=== PATIENT | female | born 1930 | race Caucasian/White ===

== ENCOUNTER 2018-04-02 19:20 | Emergency (ER) | payer MEDICARE, OTHER ==
[~2018-04-02] VITALS: Ht 167.6 cm; Wt 59.3 kg
[~2018-04-02 19:20] MED LIST: ALBU8.5H8 INH; ASPI-515 PO; BECL8.7A7 INH; CA C1TAB28 PO; CALCIUM PO; DENO60DI INJ; FLUT10SP INH; LEVO100T74 PO; LEVO88TA43 PO; LISI-170 PO; MONT10TA9 PO; MULT-224 PO; OMEP-110 PO; PRAV40TA2 PO; VITA150T PO
[2018-04-02 19:28] VITALS: BP 179/80
[2018-04-02] MEDS ORDERED: OXYcodone/APAP 5/325MG TABLET ONE (19:49)
[2018-04-02] MEDS ORDERED: OXYcodone/APAP 5/325MG TABLET PO ONE (20:00)
== END 2018-04-02 20:36 | disposition home or self-care (01) ==
LOC: ED 20:30
DX: S46.912A Strain of unspecified muscle, fascia and tendon at shoulder and upper arm level, left arm, initial encounter (principal); J44.1 Chronic obstructive pulmonary disease with (acute) exacerbation; E78.00 Pure hypercholesterolemia, unspecified; E07.9 Disorder of thyroid, unspecified; W01.0XXA Fall on same level from slipping, tripping and stumbling without subsequent striking against object, initial encounter; Y93.89 Activity, other specified; Y99.8 Other external cause status; Y92.009 Unspecified place in unspecified non-institutional (private) residence as the place of occurrence of the external cause
CPT/HCPCS: 71046; 99284

== ENCOUNTER 2019-04-06 10:04 | Outpatient (CLI) | payer MEDICARE, OTHER ==
[~2019-04-06 10:04] MED LIST changes: -MULT-224 PO; +MULT-642 PO
[2019-04-06] MEDS ORDERED: CHOL500051 PO (11:24)
[2019-04-06] MEDS ORDERED: CALC-545 PO (11:24)
[2019-04-06] MEDS ORDERED: IPRA30SP NS (11:24)
[2019-04-06] MEDS ORDERED: CENTRUM SILVER PEG (11:24)
[2019-04-06] MEDS ORDERED: [UNRECOGNIZED DRUG - OTHER] PO (11:24)
[2019-04-06] MEDS ORDERED: BIFI4CAP PO (11:24)
[2019-04-06] MEDS ORDERED: TRAM50TA2 PO (11:24)
== END 2019-04-06 23:59 | disposition home or self-care (01) ==
LOC: STAR 10:04
PROVIDERS: ATTEND Surgery
DX: Z01.818 Encounter for other preprocedural examination (principal); C50.112 Malignant neoplasm of central portion of left female breast
CPT/HCPCS: 93005

== ENCOUNTER 2019-04-07 08:35 | Outpatient (CLI) | payer MEDICARE, OTHER ==
[~2019-04-07 08:35] MED LIST changes: +BIFI4CAP PO; +CALC-545 PO; +CENTRUM SILVER PEG; +CHOL500051 PO; +IPRA30SP NS; +REGADENOSON 0.4 MG/5 ML SYRINGE ONE; +TRAM50TA2 PO; +[UNRECOGNIZED DRUG - OTHER] PO
== END 2019-04-07 23:59 | disposition home or self-care (01) ==
LOC: CFH 08:35
PROVIDERS: ATTEND Internal Medicine Cardiovascular Disease
DX: Z01.812 Encounter for preprocedural laboratory examination (principal); C50.112 Malignant neoplasm of central portion of left female breast
CPT/HCPCS: 78452; 93017; A9502; J2785

== ENCOUNTER 2019-07-23 07:39 | Emergency (ER) | payer MEDICARE, OTHER ==
[~2019-07-23] VITALS: Ht 167.6 cm; Wt 59.0 kg
[~2019-07-23 07:39] MED LIST changes: +MONT10TA11 PO; -MONT10TA9 PO; -REGADENOSON 0.4 MG/5 ML SYRINGE ONE
--- NOTE | 2019-07-23 08:09 | NUR ---
EZEQUIEL. REPORT RECEIVED FROM EMS. PT C/O SOB. PT HAD RECENT BACK SURGERY AND TAKES OXYCODONE FOR PAIN, THEN PT C/O SLEEP APNEA AND SOB. PT'S AOX4. RESPS EVEN AND UNLABORED. PT USES C-PAP FOR SLEEP APNEA. BP/SPO2 MONITORS IN PLACE. CALL LIGHT WITHIN REACH.
--- NOTE | 2019-07-23 08:34 | NUR ---
pt amb to br with steady gait.
[2019-07-23] MEDS ORDERED: LORazepam 1MG TABLET ONE (09:16)
--- NOTE | 2019-07-23 09:25 | NUR ---
PT MEDICATED PER EMAR. PT TOLERATED WELL.
[2019-07-23] MEDS ORDERED: LORazepam 1MG TABLET PO ONE (09:30)
[2019-07-23] MEDS ORDERED: SODIUM CHLORIDE FLUSH 10ML SYR IVF ONE (09:30)
--- NOTE | 2019-07-23 09:39 | NUR ---
EKG DONE AT BEDSIDE BY EMT.
[2019-07-23 10:09] VITALS: BP 146/71
[2019-07-23 10:11] LABS: BASOPHILS # (AUTO) 0.02 x10^3/uL (0-0.1); BASOPHILS % (AUTO) 1 % (0-1); EOSINOPHILS # (AUTO) 0.04 x10^3/uL (0-0.4); EOSINOPHILS % (AUTO) 1 % (1-7); LYMPHOCYTES # (AUTO) 0.71 x10^3/uL (1-3.4); LYMPHOCYTES % (AUTO) 17 % (22-44); MD NO; MEAN CORPUSCULAR HEMOGLOBIN 30.7 pg (27.0-34.8); MEAN CORPUSCULAR HGB CONC 33.4 g/dL (32.4-35.8); MEAN CORPUSCULAR VOLUME 91.8 fL (80-100); MEAN PLATELET VOLUME 8.4 fL (7.4-10.4); MONOCYTES # (AUTO) 0.19 x10^3/uL (0.2-0.8); MONOCYTES % (AUTO) 5 % (2-9); NEUTROPHILS # (AUTO) 3.29 x10^3/uL (1.8-6.8); NEUTROPHILS % (AUTO) 77 % (42-75); PLATELET COUNT 417 x10^3/uL (130-400); RED BLOOD COUNT 3.28 x10^6/uL (3.82-5.3); RED CELL DISTRIBUTION WIDTH 17.2 % (9.6-15.2)
[2019-07-23 10:22] LABS: ALBUMIN 3.1 g/dL (3.4-5.0); ANION GAP 9 mmol/L (5-15); CALCIUM 8.9 mg/dL (8.5-10.1); CHLORIDE 107 mmol/L (98-107)
--- NOTE | 2019-07-23 10:25 | NUR ---
PT SLEEPING IN [facility]. RESPS EVEN AND UNLABORED. BP/SPO2 MONITORS IN PLACE. CALL LIGHT WITHIN REACH.
[2019-07-23 10:27] LABS: ALANINE AMINOTRANSFERASE 13 U/L (12-78); ALKALINE PHOSPHATASE 82 U/L (45-117); BILIRUBIN,TOTAL 0.5 mg/dL (0.2-1.0); CREATININE 0.73 mg/dL (0.55-1.02); TOTAL PROTEIN 6.6 g/dL (6.4-8.2); TROPONIN I < 0.015 ng/mL (0.000-0.045)
--- NOTE | 2019-07-23 10:51 | NUR ---
REPORT RECEIVED FROM BIJU ROBISON.
== END 2019-07-23 11:43 | disposition home or self-care (01) ==
LOC: ED 08:04
DX: R06.00 Dyspnea, unspecified (principal); F41.1 Generalized anxiety disorder; R05 Cough; I10 Essential (primary) hypertension; J45.909 Unspecified asthma, uncomplicated; Z86.39 Personal history of other endocrine, nutritional and metabolic disease; E78.00 Pure hypercholesterolemia, unspecified; Z87.891 Personal history of nicotine dependence; Z90.710 Acquired absence of both cervix and uterus; Z90.10 Acquired absence of unspecified breast and nipple; R94.31 Abnormal electrocardiogram [ECG] [EKG]
CPT/HCPCS: 36415; 71045; 80053; 84484; 85025; 85730; 87040; 93005; 99284

== ENCOUNTER 2020-07-26 11:38 | Emergency (ER) | payer MEDICARE, OTHER ==
[~2020-07-26] VITALS: Ht 167.6 cm; Wt 60.0 kg
[~2020-07-26 11:38] MED LIST changes: -ASPI-515 PO; +ASPI-963 PO; -CALC-545 PO; +CALC-780 PO; -MONT10TA11 PO; +MONT10TA17 PO
--- NOTE | 2020-07-26 11:48 | NUR ---
QUALITY CONTROL SCIENTIST: PT INSISTED ON BP TAKEN ON LEG, BP READ 245/110, RECHECK ON ARM READS 138/69.
--- NOTE | 2020-07-26 12:00 | NUR ---
Pt changed into gown, placed on continuous SPO2 bedside monitoring with BP cuff on RLE not working well. 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 clothing examiner completed. Pt states no headache, no vision changes, no gait distubances, no mentation changes, and physical exam reveals full eye ROM. Large yellowing bruising to L eyebrow, eye, and down to L cheek present s/p GLF 8 days ago.
[2020-07-26] MEDS ORDERED: LISI-170 PO (12:39)
--- NOTE | 2020-07-26 12:57 | NUR ---
Pt to CT via [facility] now.
--- NOTE | 2020-07-26 13:31 | NUR ---
Pt back from CT without acute changes while off unit, speaking with registration, and chart marked for recheck as CT readings have posted. Addendum: 07/26/[address] at [address] results have not posted, order completion noted on new orders and mistaken as reading complete by this RN. Awaiting reading of CT scans before marking pt up for recheck.
--- NOTE | 2020-07-26 13:57 | NUR ---
Both CT readings completed and posted, reviewed by RN, and chart marked for recheck by MD at this time.
[2020-07-26 14:52] VITALS: BP 135/78
== END 2020-07-26 14:54 | disposition home or self-care (01) ==
LOC: ED 12:57
DX: S09.90XA Unspecified injury of head, initial encounter (principal); S00.12XA Contusion of left eyelid and periocular area, initial encounter; I10 Essential (primary) hypertension; J44.9 Chronic obstructive pulmonary disease, unspecified; E78.00 Pure hypercholesterolemia, unspecified; Z86.39 Personal history of other endocrine, nutritional and metabolic disease; W01.0XXA Fall on same level from slipping, tripping and stumbling without subsequent striking against object, initial encounter; Y93.89 Activity, other specified; Y92.89 Other specified places as the place of occurrence of the external cause; Y99.8 Other external cause status
CPT/HCPCS: 70450; 70486; 99285

== ENCOUNTER → 2020-12-11 | Outpatient (CLI) | payer MEDICARE, OTHER | END | disposition home or self-care (01) | LOC: CVU 13:36 | PROVIDERS: ATTEND Internal Medicine Cardiovascular Disease | DX: G62.9 Polyneuropathy, unspecified (principal); I10 Essential (primary) hypertension | CPT/HCPCS: 93922 ==